=== PATIENT | male | born 1975 | race African-American/Black ===

== ENCOUNTER 2020-01-25 22:40 | Emergency (ER) | payer MEDICAID ==
[~2020-01-25] VITALS: Ht 185.4 cm; Wt 79.0 kg
[2020-01-26] MEDS ORDERED: KETOROLAC 60MG/2ML VIAL IM ONE (01:15)
[2020-01-26 03:11] VITALS: BP 125/88
== END 2020-01-26 03:13 | disposition home or self-care (01) ==
LOC: ER 22:40
DX: R07.89 Other chest pain (principal)
CPT/HCPCS: 71045; 73060; 96372; 99284; J1885